=== PATIENT | male | born 1950 | race Caucasian/White ===

== ENCOUNTER 2020-07-22 12:07 | Emergency (ER) | payer MEDICARE ==
[2020-07-22 12:40] LABS: Glucose,Whole Blood 117 mg/dL (75-99)
[2020-07-22] MEDS ORDERED: PENICILLIN VK 500MG STARTER 4 TAB BTL PO STA (13:06)
[2020-07-22] MEDS ORDERED: dexAMETHasone 4 MG TAB PO STA (13:06)
[2020-07-22] MEDS ORDERED: PENICILLIN V POTASSIUM 250 MG TAB PO STA (13:06)
[2020-07-22] MEDS ORDERED: valACYclovir HCL 1,000 MG TABLET PO STA (13:06)
--- NOTE | 2020-07-22 13:09 | CT ---
EXAMINATION TYPE: CT brain wo con DATE OF EXAM: 07/22/2020 COMPARISON: None available. HISTORY: Rt facial droop CT DLP: 1133.4 mGycm Automated exposure control for dose reduction was used. FINDINGS: There is no intracranial hemorrhage, midline shift or hydrocephalus. The white matter is grossly unre markable. The paranasal sinuses and mastoid air cells are adequately aerated. No calvarial fracture. IMPRESSION: NO ACUTE ABNORMALITY OF NONCONTRAST HEAD CT.
[2020-07-22 13:12] VITALS: BP 150/84; RESP 18
--- NOTE | 2020-07-22 13:18 | ED ---
Neuro HPI - General Chief Complaint: Neuro Symptoms/Deficit Stated Complaint: right side facial drooping Time Seen by Provider: 07/22/20 12:32 Source: patient, RN notes reviewed, old records reviewed Mode of arrival: ambulatory Limitations: no limitations - History of Present Illness Is the patient presenting with stroke symptoms?: Yes -: days(s) Initial Comments: This is a 70-year-old male DF for evaluation of right-sided facial weakness and inability to smile difficulty with drainage from his right eye. Patient has no recent pain or trauma he does have recent MRI secondary persistent dizziness. Patient also recently all to spelled resulting in a postop infection which is being treated on antibiotics for. Otherwise has no complaints no fevers Location: right face (Sparing right forehead) History of same: No Place: home Severity: moderate Quality: weak, numb Improves With: none Worsens With: none On Anticoagulants: No Context: sudden onset Associated Symptoms: denies other symptoms Treatments Prior to Arrival: none - Related Data Home Medications: Previous Rx's Medication Instructions Recorded Penicillin V Potassium [Pen Vee K] 500 mg PO Q6HR #28 tablet 07/22/20 predniSONE [Deltasone] 60 mg PO DAILY #21 tab 07/22/20 valACYclovir HCL [Valtrex] 1,000 mg PO Q8HR #21 tab 07/22/20 Allergies/Adverse Reactions: Allergies Allergy/AdvReac Type Severity Reaction Status Date / Time wheat Allergy Unknown Verified 07/22/20 12:22 Review of Systems ROS Statement: Those systems with pertinent positive or pertinent negative responses have been documented in the HPI. ROS Other: All systems not noted in ROS Statement are negative. General Exam - General Exam Comments Initial Comments: Right-sided facial numbness and drooping, unable to raise right eyebrow cannot fully close right eye Limitations: no limitations General appearance: alert, in no apparent distress Head exam: Present: atraumatic, normocephalic, normal inspection Eye exam: Present: normal appearance, PERRL, EOMI. Absent: scleral icterus, conjunctival injection, periorbital swelling ENT exam: Present: normal exam, mucous membranes moist Neck exam: Present: normal inspection. Absent: tenderness, meningismus, lymphadenopathy Respiratory exam: Present: normal lung sounds bilaterally. Absent: respiratory distress, wheezes, rales, rhonchi, stridor Cardiovascular Exam: Present: regular rate, normal rhythm, normal heart sounds. Absent: systolic murmur, diastolic murmur, rubs, gallop, clicks GI/Abdominal exam: Present: soft, normal bowel sounds. Absent: distended, tenderness, guarding, rebound, rigid Extremities exam: Present: normal inspection, full ROM, normal capillary refill. Absent: tenderness, pedal edema, joint swelling, calf tenderness Back exam: Present: normal inspection Neurological exam: Present: alert, oriented X3, CN II-XII intact Psychiatric exam: Present: normal affect, normal mood Skin exam: Present: warm, dry, intact, normal color. Absent: rash Stroke MDM - Lab Data Lab Results 07/22/20 Range/Units 12:39 POC Glucose (mg/dL) 117 H (75-99) mg/dL POC Glu Call Worker ID Janes Gibbs - NIH Stroke Scale 1a. Level of Consciousness: (0) alert 1b. LOC Questions: (0) answers correctly 1c. LOC Commands: (0) performs tasks correctly 2. Best Gaze: (0) normal 3. Visual: (0) no visual loss 4. Facial Palsy: (2) partial paralysis 5a. Motor Arm Left: (0) no drift 5b. Motor Arm Right: (0) no drift 6a. Motor Leg Left: (0) no drift 6b. Motor Leg Right: (0) no drift 7. Limb Ataxia: (0) absent 8. Sensory: (0) normal 9. Best Language: (0) no aphasia 10. Dysarthria: (0) normal 11. Extinction/Inattention: (0) no abnormality - Thrombolytic Inclusion/Exclusion Thrombolytic Exclusion Criteria: Symptom Onset > 4.5 Hours - Medical Decision Making 70 male presenting with signs and symptoms consistent with Williamson's palsy. Patient can be discharged home - Radiology Data Radiology results: report reviewed (CT brain negative for acute disease), image reviewed Past Medical History Past Medical History: No Reported History History of Any Multi-Drug Resistant Organisms: None Reported Past Surgical History: Prostate Surgery Past Psychological History: No Psychological Hx Reported Smoking Status: Former smoker Past Alcohol Use History: None Reported Past Drug Use History: None Reported Course Vital Signs 07/22/20 07/22/20 12:19 13:11 Temperature 97.8 F Pulse Rate 66 66 Respiratory 16 18 Rate Blood Pressure 164/86 150/84 O2 Sat by Pulse 95 92 L Oximetry - Reevaluation(s) Reevaluation #1: 07/22/20 13:17 C medical record is reviewed orrected is reviewed Reevaluation #2: 07/22/20 13:17 Patient remains with no limb or other deficit Reevaluation #3: 07/22/20 13:18 Patient informed results questions answered Disposition Clinical Impression: Williamson's palsy Disposition: HOME SELF-CARE Condition: Good Instructions (If sedation given, give patient instructions): Williamson Palsy (ED) Prescriptions: predniSONE [Deltasone] 60 mg PO DAILY #21 tab Penicillin V Potassium [Pen Vee K] 500 mg PO Q6HR #28 tablet valACYclovir HCL [Valtrex] 1,000 mg PO Q8HR #21 tab Is patient prescribed a controlled substance at d/c from ED?: No Referrals: Dominic Paige MD [Primary Care Provider] - 1-2 days
[2020-07-22 13:33] VITALS: PULSE 64; TEMP 98.5
== END 2020-07-22 13:30 | disposition home or self-care (01) ==
LOC: EC 12:07
DX: G51.0 Bell's palsy (principal); Z91.018 Allergy to other foods; Z87.891 Personal history of nicotine dependence
CPT/HCPCS: 36415; 70450; 99284; J8540